=== PATIENT | female | born 1995 | race Caucasian/White ===

== ENCOUNTER 2022-07-03 08:03 | Day surgery (SDC) | payer OTHER, BC ==
[2022-07-02 16:34] VITALS: BMI 27.4
[2022-07-03] MEDS ORDERED: Midazolam HCl 2 mg/2 ml Vial ONE (08:48)
[2022-07-03] MEDS ORDERED: EPINEPHrine 1 MG/ML AMP ONE (08:48)
[2022-07-03] MEDS ORDERED: Bupivacaine PF 0.5% 30 ML VIAL ONE (08:48)
[2022-07-03] MEDS ORDERED: Fentanyl 100 MCG/2 ML VIAL ONE (08:48)
[2022-07-03] MEDS ORDERED: Acetaminophen 500 MG TAB ONE (09:06)
[2022-07-03] MEDS ORDERED: Dexamethasone 20 MG/5 ML VIAL ONE (09:30)
[2022-07-03] MEDS ORDERED: PROPOFOL 200 MG/20 ML VIAL ONE (09:30)
[2022-07-03] MEDS ORDERED: Ondansetron PF 4 MG/2 ML Vial ONE ×2 (09:30→10:52)
[2022-07-03] MEDS ORDERED: CEFAZOLIN 2 GM VIAL ONE (09:39)
[2022-07-03] MEDS ORDERED: Sodium Chloride 0.9% 100 ML ONE (09:39)
[2022-07-03] MEDS ORDERED: fentaNYL PF 100 MCG/2 ML SYRINGE ONE ×2 (10:04→10:55)
== END 2022-07-03 13:15 | disposition home or self-care (01) ==
LOC: SDC 08:03
PROVIDERS: ATTEND Orthopaedic Surgery
PROC: 0PSH04Z Reposition Right Radius with Internal Fixation Device, Open Approach (ICD-10-PCS; principal; 2022-07-03)
DX: S52.571A Other intraarticular fracture of lower end of right radius, initial encounter for closed fracture (principal); S52.121A Displaced fracture of head of right radius, initial encounter for closed fracture; Z91.040 Latex allergy status; V49.9XXA Car occupant (driver) (passenger) injured in unspecified traffic accident, initial encounter
CPT/HCPCS: C1713; J0171; J1100; J2250; J2405; J2704; J3010; J3490; S0020